=== PATIENT | male | born 1985 | race Caucasian/White ===

== ENCOUNTER 2019-10-08 18:58 | Emergency (ER) | payer MEDICAID ==
[~2019-10-08] VITALS: Ht 175.3 cm; Wt 109.1 kg
[2019-10-08 19:02] VITALS: BP 121/83
[2019-10-08] MEDS ORDERED: CLOT15CR73 TP (19:54)
[2019-10-08] MEDS ORDERED: LACT10SO PO (19:54)
== END 2019-10-08 20:13 | disposition home or self-care (01) ==
LOC: ER 18:59
DX: K59.00 Constipation, unspecified (principal); B35.4 Tinea corporis; Z76.0 Encounter for issue of repeat prescription; Z79.899 Other long term (current) drug therapy
CPT/HCPCS: 99283